=== PATIENT | female | born 1995 | race Hispanic/Latino ===

== ENCOUNTER 2018-05-03 21:40 | Emergency (ER) | payer OTHER ==
[~2018-05-03 21:40] MED LIST: GLYB2.5 PO
[2018-05-03] MEDS ORDERED: IBUPROFEN 600 MG TABLET ONE (22:08)
[2018-05-03] MEDS ORDERED: CYCLOBENZAPRINE HCL 10 MG TABLET ONE (22:09)
== END 2018-05-03 22:18 | disposition home or self-care (01) ==
LOC: EDH 21:40
DX: S13.4XXA Sprain of ligaments of cervical spine, initial encounter (principal); M62.830 Muscle spasm of back; R07.9 Chest pain, unspecified; Z90.49 Acquired absence of other specified parts of digestive tract; Z98.51 Tubal ligation status; Z86.32 Personal history of gestational diabetes; V59.59XA Passenger in pick-up truck or van injured in collision with other motor vehicles in traffic accident, initial encounter; Y93.89 Activity, other specified; Y92.488 Other paved roadways as the place of occurrence of the external cause; Y99.8 Other external cause status

== ENCOUNTER 2022-02-03 19:29 | Emergency (ER) | payer OTHER ==
[~2022-02-03] VITALS: Ht 157.5 cm; Wt 89.8 kg
[~2022-02-03 19:29] MED LIST changes: -GLYB2.5 PO; +GLYB2.5T6 PO
[2022-02-03 19:32] VITALS: BP 128/91
[2022-02-03] MEDS ORDERED: IBUPROFEN 600 MG TABLET PO ONE (20:00)
[2022-02-03] MEDS ORDERED: ACETAMINOPHEN 500 MG TABLET PO ONE (20:00)
[2022-02-03] MEDS ORDERED: BENZ-39 PO (20:53)
== END 2022-02-03 20:59 | disposition home or self-care (01) ==
LOC: EDH 19:29
DX: U07.1 COVID-19 (principal); Z79.1 Long term (current) use of non-steroidal anti-inflammatories (NSAID); Z79.84 Long term (current) use of oral hypoglycemic drugs; Z90.49 Acquired absence of other specified parts of digestive tract
CPT/HCPCS: 99283; 87635; 87880; 87804 ×2; C9803